=== PATIENT | male | born 1965 ===

== ENCOUNTER 2017-03-20 13:15 | Emergency (ER) | payer BC ==
[2017-03-20 13:30] VITALS: BP 131/77; PULSE 80; RESP 18; TEMP 99; O2SAT 99
--- NOTE | 2017-03-20 13:53 | ED PDOC ---
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 Patient is unaware of any known allergen exposures. He denies any recent travel. He states he was seen last week by primary care doctor who told him he had an allergic rash and he was prescribed a course of low dose of prednisone and hydroxyzine without the relief of symptoms. No fever or chills, no history of similar symptoms. PMD: Dr. Carina Petit MD Past Medical History Reviewed: Historical Data, Nursing Documentation, Vital Signs Vital Signs: Last Vital Signs Temp 99 F 03/20/17 13:26 Pulse 80 03/20/17 13:26 Resp 18 03/20/17 13:26 BP 131/77 03/20/17 13:26 Pulse Ox 99 03/20/17 14:04 - Medical History PMH: Diabetes, HTN, Hypercholesterolemia - Surgical History Surgical History: Coronary Stent - Family History Family History: States: No Known Family Hx - Living Arrangements Living Arrangements: With Family - Social History Current smoker - smoking cessation education provided: No Alcohol: Social Drugs: Denies - Home Medications Home Medications: Ambulatory Orders Medication Instructions Recorded Prednisone 50 mg PO DAILY #5 tablet 03/20/17 - Allergies Allergies/Adverse Reactions: Allergies Allergy/AdvReac Type Severity Reaction Status Date / Time No Known Allergies Allergy Verified 03/20/17 13:26 Review of Systems ROS Statement: Except As Marked, All Systems Reviewed And Found Negative Constitutional: Negative for: Fever ENT: Negative for: Throat Pain, Throat Swelling Respiratory: Negative for: Shortness of Breath Skin: Positive for: Rash (Diffuse rash to the upper body x 2 weeks) Physical Exam - Reviewed Nursing Documentation Reviewed: Yes Vital Signs Reviewed: Yes - Physical Exam Appears: Positive for: Non-toxic, No Acute Distress Head Exam: Positive for: ATRAUMATIC, NORMAL INSPECTION, NORMOCEPHALIC Skin: Positive for: Rash (Diffuse urticarial rash noted to the upper b/l extremities and torso.) Neurologic/Psych: Positive for: Alert, Oriented (x3) - ECG O2 Sat by Pulse Oximetry: 99 (RA) Pulse Ox Interpretation: Normal Medical Decision Making Medical Decision Making: Time: 13:25 Initial Impression: Allergic Reaction Initial Plan: - IM solumedrol Patient given prescription for prednisone. He was advised to continue with Benadryl. Patient was instructed to follow up with primary doctor in 1-2 days. Scribe Attestation: Documented by Martita Coles, acting as a scribe for Maty Esquivel PA-C. Provider Scribe Attestation: All medical record entries made by the Scribe were at my direction and personally dictated by me. I have reviewed the chart and agree that the record accurately reflects my personal performance of the history, physical exam, medical decision making, and the department course for this patient. I have also personally directed, reviewed, and agree with the discharge instructions and disposition. Disposition - Clinical Impression Clinical Impression: Urticaria - Patient ED Disposition Is Patient to be Admitted: No Counseled Patient/Family Regarding: Diagnosis, Need For Followup, Rx Given - Disposition Referrals: Carina Petit MD [Family Provider] - Disposition: Routine/Home Disposition Time: 14:24 Condition: STABLE Additional Instructions: Take over the counter Claritin 10 mg tablet during the day and 2 tablets of Benadryl at night. Take prescription medicines as directed. Follow up with primary doctor in 1-2 days. Prescriptions: Prednisone 50 mg PO DAILY #5 tablet Instructions: Urticaria (ED) Forms: [employer] ([place] Islander) Print Language: AUSTRIAN
== END 2017-03-20 15:25 | disposition home or self-care (01) ==
LOC: H.ER 13:15
DX: L50.9 Urticaria, unspecified (principal)
CPT/HCPCS: 96372; 99282; J2930